=== PATIENT | female | born 1995 ===

== ENCOUNTER 2022-04-02 14:12 | Outpatient (CLI) | payer OTHER | END 2022-04-02 17:29 | disposition home or self-care (01) | LOC: PRENATAL 14:12 | PROVIDERS: ATTEND Obstetrics & Gynecology Maternal & Fetal Medicine | DX: O35.0XX0 Maternal care for (suspected) central nervous system malformation in fetus, not applicable or unspecified (principal); O35.3XX0 Maternal care for (suspected) damage to fetus from viral disease in mother, not applicable or unspecified; Z3A.22 22 weeks gestation of pregnancy ==

== ENCOUNTER 2022-06-11 09:05 | Outpatient (CLI) | payer OTHER | END 2022-06-11 11:00 | disposition home or self-care (01) | LOC: PRENATAL 09:05 | PROVIDERS: ATTEND Obstetrics & Gynecology Maternal & Fetal Medicine | DX: O26.849 Uterine size-date discrepancy, unspecified trimester (principal); O36.8199 Decreased fetal movements, unspecified trimester, other fetus; O36.5990 Maternal care for other known or suspected poor fetal growth, unspecified trimester, not applicable or unspecified; Z3A.32 32 weeks gestation of pregnancy ==